=== PATIENT | female | born 1970 | race Caucasian/White ===

== ENCOUNTER → 2017-03-05 | Outpatient (REF) | payer OTHER ==
[2017-03-05 13:38] LABS: BASO % 0.3 % (0.0-1.0); EOS # 0.2 K/mm3 (0.0-0.50); EOS % 3.5 % (0.0-3.0); LARGE UNSTAINED CELL # 0.2 K/mm3 (0.0-0.4); LARGE UNSTAINED CELL % 2.5 % (0.0-4.0); LYMPH # 1.4 K/mm3 (1.5-4.5); MEAN CORPUSCULAR HEMOGLOBIN 31.9 pg (27.0-33.0); MEAN CORPUSCULAR HGB CONC 33.1 g/dl (32.0-36.5); MEAN CORPUSCULAR VOLUME 96.4 fl (80.0-96.0); MONO # 0.5 K/mm3 (0.0-0.8); MONO % 7.7 % (0.0-5.0); NEUTROPHILS # 4.6 K/mm3 (1.8-7.7); NEUTROPHILS % 65.9 % (36.0-66.0); PLATELET COUNT, AUTOMATED 302 k/mm3 (150-450); RED CELL DISTRIBUTION WIDTH 13.2 % (11.5-14.5)
[2017-03-05 13:56] LABS: FOLATE 20.4 NG/ML; VITAMIN B12 LEVEL 439 PG/ML
[2017-03-05 13:58] LABS: ALBUMIN 3.2 GM/DL (3.2-5.2); ALBUMIN/GLOBULIN RATIO 0.82 (1.00-1.93); ALKALINE PHOSPHATASE 44 U/L (45-117); ALT/SGPT 65 U/L (12-78); ANION GAP 8 MEQ/L (8-16); AST/SGOT 64 U/L (15-37); BILIRUBIN,TOTAL 1.1 MG/DL (0.2-1.0); BLOOD UREA NITROGEN 8 MG/DL (7-18); CALCIUM LEVEL 8.7 MG/DL (8.5-10.1); CARBON DIOXIDE LEVEL 24 MEQ/L (21-32); CHLORIDE LEVEL 107 MEQ/L (98-107); CREATININE FOR GFR 0.67 MG/DL (0.55-1.02); GLOMERULAR FILTRATION RATE > 60.0 (>58); GLUCOSE, FASTING 90 MG/DL (70-105); POTASSIUM SERUM 4.5 MEQ/L (3.5-5.1); SODIUM LEVEL 139 MEQ/L (136-145); TOTAL PROTEIN 7.1 GM/DL (6.4-8.2)
[2017-03-05 14:23] LABS: ERYTHROCYTE SEDIMENTATION RATE 29 mm/hr (0-20)
[2017-03-06 13:36] LABS: ALBUMIN 3.66 GM/DL (3.29-5.55); ALBUMIN % 51.5 % (55.8-66.1); GAMMA GLOBULIN % 21.3 % (11.1-18.8)
[2017-03-08 08:07] LABS: Lyme Disease IgG/IgM Antibodie <0.91 ISR (0.00-0.90); Lyme Disease IgM Ab Quantitati <0.80 index (0.00-0.79); SJOGREN'S ANTI SS-A 6.7 AI (0.0-0.9); SJOGREN'S ANTI SS-B <0.2 AI (0.0-0.9)
== END ==
LOC: M LABNEURO 12:40
PROVIDERS: ATTEND Psychiatry & Neurology Neurology
DX: G62.9 Polyneuropathy, unspecified (principal)

== ENCOUNTER → 2017-10-22 | Outpatient (REF) | payer OTHER ==
[2017-10-22 13:44] LABS: D-DIMER QUANT 601.3 ng/ml (<500)
[2017-10-24 11:10] LABS: DRVV SCREEN 45.9 SEC
[2017-10-24 11:11] LABS: PTT LUPUS TYPE ANTICOAG SCREEN 1.1 (0-1.2)
[2017-10-27 00:10] LABS: ANTI THROMBIN 3 ANTIGEN IMMUNO 98 % (72-124); ANTI THROMBIN 3 FUNCT ACTIVITY 118 % (75-135); BETA-2 GLYCOPROTEIN I ABY IGA <9 (0-25); BETA-2 GLYCOPROTEIN I ABY IGG <9 (0-20); BETA-2 GLYCOPROTEIN I ABY IGM <9 (0-32); FACTOR VIII ACTIVITY 213 % (57-163); PROTEIN C FUNCTIONAL ACTIVITY 139 % (73-180); PROTEIN S FUNCTIONAL ACTIVITY 118 % (63-140)
== END ==
LOC: M LAB REF 12:48
DX: Z86.711 Personal history of pulmonary embolism (principal)
CPT/HCPCS: 85730

== ENCOUNTER 2023-03-21 06:19 | Day surgery (SDC) | payer OTHER ==
[~2023-03-21] VITALS: Ht 160 cm; Wt 124.7 kg
[~2023-03-21 06:19] MED LIST: ASPI81TA26 PO; BACL10TA2 PO; CYCL5TAB PO; DULO1CAP6 PO; FAMO40TA3 PO; HUMI40KI SC; HYDR12CA PO; LOSA100T46 PO; METO25TA4 PO; NYST100085 TOP; OMEP40CA5 PO; TOPI100T9 PO; VENTAER INH; ceFAZolin SOD 1 GM in D5W MINI-BAG PLUS 50 ML IV ONE; ceFAZolin SOD 2 GM in IV 1 EA IV ONE
[2023-03-21] MEDS ORDERED: LR 1,000 ML IV SCH ×2 (06:40→08:20)
[2023-03-21] MEDS ORDERED: ACETAMINOPHEN 1000MG 100ML IV BAG As Ordered ONE (07:02)
[2023-03-21] MEDS ORDERED: propofoL 200 MG/20 ML VIAL As Ordered ONE (07:03)
[2023-03-21] MEDS ORDERED: LIDOCAINE 2% 100MG/5ML SDV (FOR ANES.) As Ordered ONE (07:05)
[2023-03-21] MEDS ORDERED: fentaNYL 100 MCG/2 ML INJECTION As Ordered ONE (07:07)
[2023-03-21] MEDS ORDERED: MIDAZOLAM INJ 2MG/2ML VIAL As Ordered ONE (07:07)
[2023-03-21] MEDS ORDERED: KETOROLAC 60MG 2ML VIAL As Ordered ONE (07:08)
[2023-03-21] MEDS ORDERED: ONDANSETRON 4MG 2ML VIAL As Ordered ONE (07:08)
[2023-03-21] MEDS ORDERED: ISOVUE-300 61% 100ML VIAL As Ordered ONE (07:24)
[2023-03-21] MEDS ORDERED: VASOPRESSIN INJ 20UNITS/ML 1ML VIAL As Ordered ONE (07:56)
[2023-03-21] MEDS ORDERED: HYDROMORPHONE HCL 0.5 MG/ 0.5 ML SYRINGE IV PRN (08:20)
[2023-03-21] MEDS ORDERED: ONDANSETRON 4MG 2ML VIAL IV PRN (08:20)
[2023-03-21] MEDS ORDERED: oxyCODONE 5MG TAB PO PRN (08:20)
[2023-03-21] MEDS ORDERED: fentaNYL 100 MCG/2 ML INJECTION IV PRN (08:20)
[2023-03-21] MEDS ORDERED: OXYB5TAB10 PO (08:38)
[2023-03-21] MEDS ORDERED: oxyBUTYnin 5 MG TAB PO PRN (08:40)
[2023-03-21] MEDS ORDERED: PERCOCET 5MG/325MG TAB PO PRN (08:40)
[2023-03-21 09:38] VITALS: BP 99/60; TEMP 97.9; O2SAT 100
[2023-03-26 15:08] LABS: CA Oxalate Dihy 80 % (.)
== END 2023-03-21 09:50 | disposition home or self-care (01) ==
LOC: M SDC 06:19
PROVIDERS: ATTEND Urology
DX: N13.2 Hydronephrosis with renal and ureteral calculous obstruction (principal); K50.90 Crohn's disease, unspecified, without complications; Z79.51 Long term (current) use of inhaled steroids; Z79.82 Long term (current) use of aspirin; Z79.899 Other long term (current) drug therapy; Z88.8 Allergy status to other drugs, medicaments and biological substances; Z91.018 Allergy to other foods
CPT/HCPCS: 52332; 52352; 74420; 82365; C2617; J0131; J0690; J1100; J2250; J2405; J3010; Q9967

== ENCOUNTER → 2023-10-23 | Outpatient (CLI) | payer OTHER ==
[~2023-10-23] MED LIST changes: +OXYB5TAB11 PO; -ceFAZolin SOD 1 GM in D5W MINI-BAG PLUS 50 ML IV ONE; -ceFAZolin SOD 2 GM in IV 1 EA IV ONE
== END ==
LOC: M PLAIMG 15:13
PROVIDERS: ATTEND Urology
DX: N20.0 Calculus of kidney (principal)

== ENCOUNTER 2024-07-19 20:34 | Emergency (ER) | payer OTHER ==
[~2024-07-19] VITALS: Ht 160 cm; Wt 122.7 kg
[~2024-07-19 20:34] MED LIST changes: +CREO6000 PO; +DULO1CAP5 PO; -OXYB5TAB11 PO; +OXYB5TAB14 PO; +TOPA1TAB PO
[2024-07-19 21:38] LABS: BASO % 0.4 % (0.0-1.0); EOS # 0.4 10^3/uL (0.0-0.5); EOS % 3.6 % (0.0-3.0); HEMATOCRIT 39.7 % (36.0-47.0); LYMPH # 3.4 10^3/uL (1.5-5.0); LYMPH % 33.7 % (24.0-44.0); MEAN CORPUSCULAR HEMOGLOBIN 30.7 pg (27.0-33.0); MEAN CORPUSCULAR HGB CONC 32.7 g/dl (32.0-36.5); MEAN CORPUSCULAR VOLUME 93.9 fl (80.0-96.0); MONO # 0.8 10^3/uL (0.0-0.8); MONO % 8.3 % (2.0-8.0); NEUTROPHILS # 5.4 10^3/uL (1.5-8.5); NEUTROPHILS % 53.9 % (36.0-66.0); PLATELET COUNT, AUTOMATED 251 10^3/uL (150-450); RED BLOOD COUNT 4.23 10^6/uL (4.00-5.40); WHITE BLOOD COUNT 10.1 10^3/uL (4.0-10.0)
[2024-07-19 21:58] LABS: HCG, SERUM QUALITATIVE NEGATIVE (NEGATIVE)
[2024-07-19 22:00] LABS: LIPASE 25 U/L (12-53)
[2024-07-19 22:02] LABS: ALBUMIN 3.4 G/DL (3.2-5.2); ALKALINE PHOSPHATASE 73 U/L (46-116); ALT/SGPT 25 U/L (7.0-40); AST/SGOT 13 U/L (<34); BILIRUBIN,DIRECT 0.1 MG/DL (<0.4); BILIRUBIN,TOTAL 0.4 MG/DL (0.3-1.2); BLOOD UREA NITROGEN 15 MG/DL (9-23); CALCIUM LEVEL 10.5 MG/DL (8.5-10.1); CARBON DIOXIDE LEVEL 25 MMOL/L (20-31); CHLORIDE LEVEL 114 MMOL/L (98-107); CREATININE FOR GFR 0.86 MG/DL (0.55-1.30); GLOMERULAR FILTRATION RATE > 60.0 (>51); GLUCOSE, FASTING 114 MG/DL (60-100); POTASSIUM SERUM 3.7 MMOL/L (3.5-5.1); SODIUM LEVEL 144 MMOL/L (136-145); TOTAL PROTEIN 7.6 G/DL (5.7-8.2)
[2024-07-19] MEDS ORDERED: IBUP-1022 PO (22:32)
[2024-07-19] MEDS ORDERED: MACR100C43 PO (22:32)
[2024-07-19] MEDS ORDERED: ONDA-282 PO (22:32)
[2024-07-19] MEDS: ONDANSETRON 4MG 2ML VIAL IV ONE (22:34)
[2024-07-19] MEDS: NITROFURANTOIN (MACROBID) 100 MG CAP PO ONE (22:34)
[2024-07-19] MEDS: ACETAMINOPHEN 500 MG TAB PO ONE (22:35)
[2024-07-19] MEDS: KETOROLAC 30 MG/ML 1ML VIAL IV ONE (22:36)
[2024-07-19 22:41] VITALS: BP 186/87; TEMP 97.6; O2SAT 99
[2024-07-19] MEDS ORDERED: CODE30TA PO (22:42)
== END 2024-07-19 22:48 | disposition home or self-care (01) ==
LOC: M ED 20:34
DX: N39.0 Urinary tract infection, site not specified (principal); N20.0 Calculus of kidney; I10 Essential (primary) hypertension; F41.9 Anxiety disorder, unspecified; K50.90 Crohn's disease, unspecified, without complications; F10.10 Alcohol abuse, uncomplicated; M06.9 Rheumatoid arthritis, unspecified; Z88.8 Allergy status to other drugs, medicaments and biological substances; Z91.018 Allergy to other foods; Z79.52 Long term (current) use of systemic steroids; Z79.82 Long term (current) use of aspirin; Z79.811 Long term (current) use of aromatase inhibitors; Z79.899 Other long term (current) drug therapy
CPT/HCPCS: 80048; 80076; 81001; 83690; 84703; 85025; 87086; 96374; 96375; 99284; J1885; J2405

== ENCOUNTER 2024-07-31 09:38 | Day surgery (SDC) | payer OTHER ==
[~2024-07-31] VITALS: Ht 160 cm; Wt 126.1 kg
[~2024-07-31 09:38] MED LIST changes: +CODE30TA PO; +IBUP-1022 PO; +MACR100C43 PO; +ONDA-282 PO
[2024-07-31] MEDS ORDERED: LR 1,000 ML IV SCH (09:40)
[2024-07-31] MEDS ORDERED: MIDAZOLAM INJ 2MG/2ML VIAL As Ordered ONE (10:32)
[2024-07-31] MEDS ORDERED: LIDOCAINE 2% 100MG/5ML SDV (FOR ANES.) As Ordered ONE (10:32)
[2024-07-31] MEDS ORDERED: OXYC1TAB23 PO (10:32)
[2024-07-31] MEDS ORDERED: FLOM0.4C39 PO (10:32)
[2024-07-31] MEDS ORDERED: dexmedeTOMIDine (4MCG/ML)200MCG/50ML BTL (PRECEDEX) As Ordered ONE (10:40)
[2024-07-31] MEDS ORDERED: propofoL 200 MG/20 ML VIAL As Ordered ONE (10:42)
[2024-07-31] MEDS: ceFAZolin SOD 2 GM in IV 1 EA IV ONE (11:25)
[2024-07-31] MEDS ORDERED: fentaNYL 100 MCG/2 ML INJECTION As Ordered ONE (11:42)
[2024-07-31 12:30] VITALS: BP 148/75; TEMP 97.2; O2SAT 96
== END 2024-07-31 12:52 | disposition home or self-care (01) ==
LOC: M SDC 09:38
PROVIDERS: ATTEND Urology
DX: N20.0 Calculus of kidney (principal); I10 Essential (primary) hypertension; K50.90 Crohn's disease, unspecified, without complications; E78.00 Pure hypercholesterolemia, unspecified; J45.909 Unspecified asthma, uncomplicated; G47.30 Sleep apnea, unspecified; Z85.850 Personal history of malignant neoplasm of thyroid; M06.9 Rheumatoid arthritis, unspecified; K21.9 Gastro-esophageal reflux disease without esophagitis; Z79.899 Other long term (current) drug therapy; Z79.82 Long term (current) use of aspirin; Z79.620 Long term (current) use of immunosuppressive biologic; Z86.711 Personal history of pulmonary embolism; Z88.8 Allergy status to other drugs, medicaments and biological substances; Z91.018 Allergy to other foods
CPT/HCPCS: 50590; 74018; J0690; J2250; J3010

== ENCOUNTER 2025-09-07 12:00 | Outpatient (RCR) | payer OTHER ==
[~2025-09-07 12:00] MED LIST changes: -CYCL5TAB PO; +CYCL5TAB4 PO; +HYDR12.510 PO; -HYDR12CA PO; -IBUP-1022 PO; +IBUP600T42 PO; +OXYC1TAB23 PO; +TAMS-18 PO; +TOPI-257 PO; -TOPI100T9 PO
== END 2025-09-30 ==
LOC: M PT 12:00
PROVIDERS: ATTEND Nurse Practitioner Family
DX: I89.0 Lymphedema, not elsewhere classified (principal)